=== PATIENT | male | born 1940 | race Caucasian/White ===

== ENCOUNTER 2021-04-04 23:12 | Observation (INO) | payer OTHER ==
[2021-04-05] MEDS ORDERED: SODIUM CHLORIDE 0.9% 500 ML INFUS.BAG IV ONE (00:05)
[2021-04-05 01:23] LABS: BASO % 0.6 % (0-2.0); EOS % 1.5 % (0-4.5); HEMATOCRIT 39.8 % (35.4-49); LYMPH % 32.3 % (8-40); MCH 31.8 pg (25.7-33.7); MEAN CELL VOLUME 90.8 fl (80-96); MONO % 4.9 % (3.8-10.2); NEUT % 60.7 % (42.8-82.8); PLATELET COUNT 194 10^3/uL (134-434); RBC 4.38 M/mm3 (4.00-5.60); RDW 13.1 % (11.9-15.9); WHITE BLOOD COUNT 9.3 K/mm3 (4.0-10.0)
[2021-04-05 02:09] LABS: BLOOD UREA NITROGEN 26.3 mg/dL (7-18); GLUCOSE,RANDOM 116 mg/dL (74-106)
[2021-04-05 02:10] LABS: CALCIUM 8.6 mg/dL (8.5-10.1); CHLORIDE 105 mmol/L (98-107); CO2 22 mmol/L (21-32); CREATININE 1.6 mg/dL (0.55-1.3); SODIUM 139 mmol/L (136-145)
[2021-04-05 02:11] LABS: ALBUMIN 3.7 g/dl (3.4-5.0); TOT PROT 7.2 g/dl (6.4-8.2)
[2021-04-05 02:12] LABS: ALK PHOS 87 U/L (45-117); BILIRUBIN,TOTAL 0.3 mg/dL (0.2-1); SGOT/AST 19 U/L (15-37); SGPT/ALT 34 U/L (13-61)
[2021-04-05] MEDS ORDERED: ONDANSETRON 4 MG/2 ML VIAL IVPUSH PRN (05:04)
[2021-04-05] MEDS ORDERED: ACETAMINOPHEN 325 MG TABLET (FP) PO PRN (05:04)
[2021-04-05 07:50] LABS: BASO % 0.5 % (0-2.0); EOS % 1.6 % (0-4.5); HEMOGLOBIN 13.3 GM/dL (11.7-16.9); LYMPH % 31.3 % (8-40); MCH 32.2 pg (25.7-33.7); MCHC 35.8 g/dl (32.0-35.9); MEAN CELL VOLUME 89.9 fl (80-96); MEAN PLT VOLUME 8.4 fl (7.5-11.1); NEUT % 60.6 % (42.8-82.8); PLATELET COUNT 184 10^3/uL (134-434); RBC 4.12 M/mm3 (4.00-5.60); WHITE BLOOD COUNT 9.7 K/mm3 (4.0-10.0)
[2021-04-05] MEDS ORDERED: SODIUM CHLORIDE 1,000 ML IV SCH ×2 (08:00→09:49)
[2021-04-05 08:36] VITALS: BMI 33.5
[2021-04-05] MEDS ORDERED: PNEUMOC 13-VAL CONJ-DIP CRM/PF 0.5 ML DISP.SYRIN IM ONE (09:00)
[2021-04-05 09:52] LABS: ALBUMIN 3.5 g/dl (3.4-5.0); BILIRUBIN,TOTAL 0.4 mg/dL (0.2-1); BLOOD UREA NITROGEN 24.9 mg/dL (7-18); CALCIUM 8.4 mg/dL (8.5-10.1); CREATININE 1.4 mg/dL (0.55-1.3); MAGNESIUM 2.1 mg/dL (1.8-2.4); PHOSPHOROUS 3.5 mg/dL (2.5-4.9); TOT PROT 6.6 g/dl (6.4-8.2)
[2021-04-05] MEDS ORDERED: LISINOPRIL 20 MG TABLET PO SCH (10:00)
[2021-04-05] MEDS ORDERED: ASPIRIN 81 MG CHEWABLE TABLETS PO SCH (10:00)
[2021-04-05] MEDS ORDERED: NICOTINE 21 MG/24 HOURS TOPICAL PATCH TD SCH (10:00)
[2021-04-05] MEDS ORDERED: NYSTATIN POWDER 100,000 UNITS/GM - 15 GM TOPICAL POWDER TP SCH (10:00)
[2021-04-05] MEDS: HEPARIN NA (PORCINE) 5,000 UNITS/ML 1ML VIAL SQ SCH ×2 (10:11→15:53)
[2021-04-05 12:22] LABS: PH,URINE 5.5 (5.0-8.0); URINE APPEARANCE Clear; URINE BILIRUBIN Negative (NEGATIVE); URINE COLOR Yellow; URINE GLUCOSE (UA) Negative (NEGATIVE); URINE KETONE Negative (NEGATIVE); URINE LEUK ESTERASE Negative (NEGATIVE); URINE NITRITE Negative (NEGATIVE); URINE PROTEIN Negative (NEGATIVE); URINE UROBILINOGEN 0.2 mg/dL (0.2-1.0)
[2021-04-05 13:15] LABS: CALCIUM 8.4 mg/dL (8.5-10.1); CREATININE 1.4 mg/dL (0.55-1.3)
[2021-04-05 15:41] VITALS: TEMP 98
[2021-04-05 16:05] VITALS: BP 153/76; PULSE 78
[2021-04-05 20:13] LABS: ANION GAP 12 MMOL/L (8-16); MAGNESIUM 2.2 mg/dL (1.8-2.4)
[2021-04-05] MEDS ORDERED: ATORVASTATIN CA 10 MG TABLET (FP) PO SCH (22:00)
== END 2021-04-05 16:13 | disposition home or self-care (01) ==
LOC: JER 23:12 → UNDOADMOB 04-05 02:16 → OBSVTOIN 04-05 02:16 → INTOOBSV 04-05 02:16 → JERBED 04-05 02:16 → J4W 04-05 05:03 → JERBED 04-05 08:25
PROVIDERS: ADMIT Internal Medicine; ATTEND Internal Medicine
PROC: 3E0234Z Introduction of Serum, Toxoid and Vaccine into Muscle, Percutaneous Approach (ICD-10-PCS; principal; 2021-04-05)
PROC: 3E0337Z Introduction of Electrolytic and Water Balance Substance into Peripheral Vein, Percutaneous Approach (ICD-10-PCS; 2021-04-05)
DX: N17.9 Acute kidney failure, unspecified (principal); I10 Essential (primary) hypertension; E78.5 Hyperlipidemia, unspecified; R55 Syncope and collapse; R42 Dizziness and giddiness; E66.9 Obesity, unspecified; Z68.33 Body mass index [BMI] 33.0-33.9, adult; F17.210 Nicotine dependence, cigarettes, uncomplicated; R21 Rash and other nonspecific skin eruption; Z29.9 Encounter for prophylactic measures, unspecified
CPT/HCPCS: 36415; 70450-TC; 71046-TC-FY; 76775-TC; 80048; 80053; 81003; 82550; 83735; 83880; 84100; 84443; 84484; 85025; 90471; 90670; 93005; 93010; 96372; 99285-25; C9803; G0378; J1644; U0003; U0005

== ENCOUNTER 2023-02-16 11:54 | Emergency (ER) | payer OTHER ==
[2023-02-16 12:14] VITALS: BP 144/63; PULSE 63; RESP 18; TEMP 98; BMI 28.6
[2023-02-16] MEDS ORDERED: DIPHTH,PERTUSS(ACELL),TET 0.5 ML DISP.SYRIN IM ONE ×2 (12:46)
[2023-02-16] MEDS ORDERED: LIDOCAINE 1.5%-EPINEPHRINE 1:200,000/PF 30 ML VIAL IJ ONE (13:41)
[2023-02-16] MEDS ORDERED: LIDOCAINE HCL 1%, 10 MG/ML (20ML VIAL) ONE (13:44)
== END 2023-02-16 14:51 | disposition home or self-care (01) ==
LOC: JER 11:54
PROC: 0HQLXZZ Repair Left Lower Leg Skin, External Approach (ICD-10-PCS; principal; 2023-02-16)
PROC: 3E0234Z Introduction of Serum, Toxoid and Vaccine into Muscle, Percutaneous Approach (ICD-10-PCS; 2023-02-16)
DX: S81.812A Laceration without foreign body, left lower leg, initial encounter (principal); W11.XXXA Fall on and from ladder, initial encounter; Y92.009 Unspecified place in unspecified non-institutional (private) residence as the place of occurrence of the external cause
CPT/HCPCS: 12002-25; 73590-TC-LT-FY; 90471; 90715; 99283-25

== ENCOUNTER 2023-02-27 10:45 | Emergency (ER) | payer OTHER ==
[2023-02-27 10:56] VITALS: BP 117/71; PULSE 72; RESP 18; TEMP 97.8; BMI 28.8
== END 2023-02-27 11:30 | disposition home or self-care (01) ==
LOC: JER 10:45 → JERFT 10:45
DX: Z48.02 Encounter for removal of sutures (principal)
CPT/HCPCS: 99281-25